=== PATIENT | female | born 1965 | race Two or more races ===

== ENCOUNTER 2022-11-30 21:03 | Emergency (ER) | payer OTHER ==
[~2022-11-30] VITALS: Ht 175.3 cm; Wt 104.3 kg
[2022-11-30] MEDS ORDERED: METFORMIN HCL500 MG (21:06)
[2022-11-30] MEDS ORDERED: CLONAZEPAM0.5 M1 (21:10)
== END 2022-12-01 00:11 | disposition home or self-care (01) ==
LOC: ER 21:03
DX: S82.141A Displaced bicondylar fracture of right tibia, initial encounter for closed fracture (principal); W18.39XA Other fall on same level, initial encounter; Y93.89 Activity, other specified; Y92.832 Beach as the place of occurrence of the external cause